=== PATIENT | male | born 1960 | race Caucasian/White ===

== ENCOUNTER → 2020-12-30 | Outpatient (CLI) | payer OTHER ==
--- NOTE | 2020-12-30 13:13 | RAD ---
INDICATION: Reason: SWELLING/LUMP ON LT GROIN / Spl. Instructions: / History: COMPARISON: None. FINDINGS: Focused ultrasound images are obtained through the left groin soft tissues. Within the subcutaneous s oft tissues there is a focal hypoechoic region identified measuring 13 x 13 by 8mm. There is a possib le tract extending towards the skin. IMPRESSION: * Hypoechoic region within the subcutaneous soft tissues of the left groin. Possible causes would i nclude infectious etiology such as phlegmon formation, soft tissue hematoma with a soft tissue mass a lso within the differential therefore would obtain a follow-up to ensure that this appropriately reso lves. Electronically signed by: Solo Sandoval MD (12/30/2020 1:10 PM) [id number]
== END ==
LOC: US 09:04
PROVIDERS: ATTEND Family Medicine
DX: R22.42 Localized swelling, mass and lump, left lower limb (principal); R19.09 Other intra-abdominal and pelvic swelling, mass and lump
CPT/HCPCS: 76881